=== PATIENT | male | born 1945 | race Caucasian/White ===

== ENCOUNTER 2017-09-14 11:48 | Emergency (ER) | payer OTHER, MEDICARE, BC ==
[~2017-09-14] VITALS: Ht 175.3 cm; Wt 76.2 kg
[~2017-09-14 11:48] MED LIST: 1-ME1LIQ PO; ATOR20TA42 PO; BACT800T5 PO; CEPH500C3 PO; HYDR-3533 PO; LISI-360 PO; TOPR100T15 PO
[2017-09-14 11:51] VITALS: BP 169/81; PULSE 73; RESP 16; TEMP 98; O2SAT 96
[2017-09-14] MEDS ORDERED: TOPR100T PO (12:06)
[2017-09-14] MEDS ORDERED: LISI10TA3 PO (12:06)
[2017-09-14] MEDS ORDERED: ATOR20TA15 PO (12:06)
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
[2017-09-14] MEDS ORDERED: ROBA500T PO (13:21)
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
== END 2017-09-14 14:09 | disposition home or self-care (01) ==
LOC: PHEFT 11:48
DX: M62.830 Muscle spasm of back (principal); M54.5 Low back pain
CPT/HCPCS: 72128; 72131; 99285

== ENCOUNTER 2018-07-12 10:31 | Inpatient (IN) ==
--- NOTE | 2018-07-12 11:03 | ED ---
HPI General Chief complaint: Head Injury Stated complaint: Fall/hit head/passt out x this am History of Present Illness HPI narrative: 72-year-old male presents emergency department for evaluation of mild headache neck pain right wrist pain after a fall. Patient states he misstepped going down [place] stairs and fell the last 5 stairs. He thinks he had a brief loss of consciousness after the fall. States he is having a little sternal chest pain when he takes a deep breath. No cough no congestion no abdominal pain no nausea vomiting. States just, achy all over as well. States symptoms are fairly mild, he took some Aleve with minimal relief prior to arrival, associated signs symptoms in context as above. Symptoms started about 2 hours prior to arrival. Related Data Home Medications Medication Instructions Recorded Confirmed atorvastatin 40 mg PO DAILY 07/12/18 metoprolol succinate 50 mg PO DAILY 07/12/18 Allergies Allergy/AdvReac Type Severity Reaction Status Date / Time No Known Allergies Unknown Uncoded 09/14/17 11:51 Review of Systems ROS: all other systems reviewed are negative [facility] Medical History Medical History HTN (hypertension) (Acute) High cholesterol (Acute) Surgical History Surgical History H/O heart artery stent (Acute) Hx of cardiac cath (Acute) Hx of endovascular stent graft for abdominal aortic aneurysm (Acute) Social History Social History Substance History: No History of Abuse Second Hand Smoke Exposure: Yes Smoking Status: Current every day smoker Tobacco Type: Cigarettes How Often Do You Have a Drink Containing Alcohol: 4 or more times a week Recent Travel in [facility] within the Last 8 Weeks: No Recent Out of Country Travel within the Last 8 Weeks: No Exam Narrative Exam Narrative: GENERAL: Well-developed well-nourished, no obvious distress, SKIN: Small abrasions noted to the scalp crown. No other significant abrasions or laceration seen on his person peer. HEAD: No russ signs no raccoons eyes. Normocephalic. EYES: Pupils equal and round. No scleral icterus. No injection or drainage. ENT: No nasal bleeding or discharge. Mucous membranes pink and moist. NECK: Trachea midline. No JVD. CARDIOVASCULAR: Regular rate and rhythm. No murmur appreciated. RESPIRATORY: No accessory muscle use. Clear to auscultation. Breath sounds equal bilaterally. GASTROINTESTINAL: Abdomen soft, non-tender, nondistended. Hepatic and splenic margins not palpable. MUSCULOSKELETAL: No obvious deformities. No clubbing. No cyanosis. No edema. No midline thoracic or lumbar tenderness. Trace midline cervical spine tenderness. Some mild swelling of the right wrist but no pulse motor and sensory intact distally in all 4 extremities, all range of motion is intact of the extremities NEUROLOGICAL: Awake and alert. No obvious cranial nerve deficits. Motor grossly within normal limits. Normal speech. PSYCHIATRIC: Appropriate mood and affect; insight and judgment normal. Course Initial Documented Vital Signs Temperature 98.3 F 07/12/18 11:15 Pulse Rate 85 07/12/18 11:15 Respiratory Rate 16 07/12/18 11:15 Blood Pressure 171/89 H 07/12/18 11:15 Pulse Oximetry 95 07/12/18 11:15 Last Documented Vital Signs Temperature 97.4 F L 07/13/18 04:00 Pulse Rate 92 H 07/13/18 07:31 Respiratory Rate 18 07/13/18 04:00 Blood Pressure 160/81 H 07/13/18 04:00 Pulse Oximetry 94 L 07/13/18 04:00 Medical Decision Making [facility] Narrative Medical decision making narrative: Patient is 72-year-old male since emergency department after trip and fall, looks well, scattered abrasions on his head. Lost consciousness when he completed his fall. EKG reassuring, basic labs ordered after the patient showed a transverse process C5 fracture on CT scan. Discussed with Dr. Jernigan who would like the patient to be admitted to trauma for his consultation, discussed with Dr. Don who is agreeable peer patient hemodynamically and neurologically intact. GCS 15, stable for transport to the main hospital per Medical Screen Exam Complete: Yes Emergency Medical Condition: Yes Differential Diagnosis Differential Diagnosis: Head injury, neck injury, internal injuries unlikely. Lab Data Result diagrams: 07/13/18 04:42 07/13/18 04:42 Lab Results 07/12/18 07/12/18 07/12/18 Range/Units 12:50 12:50 20:15 CBC w Diff Auto diff final WBC 11.1 H (4.0-11.0) th/mm3 RBC 4.41 L (4.50-5.90) mil/mm3 Hgb 15.3 (13.0-17.0) gm/dL Hct 44.0 (39.0-51.0) % MCV 99.8 (80.0-100.0) fL MCH 34.6 H (27.0-34.0) pg MCHC 34.6 (32.0-36.0) % RDW 13.1 (11.6-17.2) % Plt Count 231 (150-450) th/mm3 MPV 6.9 L (7.0-11.0) fL Neut % (Auto) 73.6 H (16.0-70.0) % Lymph % (Auto) 16.8 (9.0-44.0) % Dickey % (Auto) 6.7 (0.0-8.0) % Eos % (Auto) 0.9 (0.0-4.0) % Baso % (Auto) 2.0 (0.0-2.0) % Neut # (Auto) 8.2 H (1.8-7.7) th/mm3 Lymph # (Auto) 1.9 (1.0-4.8) th/mm3 Dickey # (Auto) 0.7 (0.0-0.9) th/mm3 Eos # (Auto) 0.1 (0.0-0.4) th/mm3 Baso # (Auto) 0.2 (0.0-0.2) th/mm3 WBC Differential . Differential Comment . Sodium 140 (136-145) meq/L Potassium 4.2 (3.5-5.1) meq/L Chloride 107 (98-107) meq/L Carbon Dioxide 22.8 (21.0-32.0) meq/L Anion Gap 10 (5-15) meq/L BUN 10 (7-18) mg/dL Creatinine 0.80 (0.60-1.30) mg/dL Estimated GFR Greater than 89 (>89) mL/min Random Glucose 74 (74-106) mg/dL Calcium 8.8 (8.5-10.1) mg/dL Total Bilirubin 0.6 (0.2-1.0) mg/dL AST 61 H (15-37) U/L ALT 48 (12-78) U/L Alkaline Phosphatase 65 (45-117) U/L Troponin I Less than 0.02 L (0.02-0.05) ng/mL Total Protein 8.2 (6.4-8.2) g/dL Albumin 4.1 (3.4-5.0) g/dL Nasal Screen MRSA (PCR) Not detected (Negative) 07/13/18 07/13/18 Range/Units 04:42 04:42 CBC w Diff WBC 7.7 (4.0-11.0) th/mm3 RBC 4.12 L (4.50-5.90) mil/mm3 Hgb 14.5 (13.0-17.0) gm/dL Hct 40.9 (39.0-51.0) % MCV 99.1 (80.0-100.0) fL MCH 35.1 H (27.0-34.0) pg MCHC 35.4 (32.0-36.0) % RDW 13.5 (11.6-17.2) % Plt Count 186 (150-450) th/mm3 MPV 7.2 (7.0-11.0) fL Neut % (Auto) 66.1 (16.0-70.0) % Lymph % (Auto) 20.7 (9.0-44.0) % Dickey % (Auto) 10.1 H (0.0-8.0) % Eos % (Auto) 2.5 (0.0-4.0) % Baso % (Auto) 0.6 (0.0-2.0) % Neut # (Auto) 5.1 (1.8-7.7) th/mm3 Lymph # (Auto) 1.6 (1.0-4.8) th/mm3 Dickey # (Auto) 0.8 (0.0-0.9) th/mm3 Eos # (Auto) 0.2 (0.0-0.4) th/mm3 Baso # (Auto) 0.0 (0.0-0.2) th/mm3 WBC Differential . Differential Comment Auto diff final Sodium 138 (136-145) meq/L Potassium 3.6 (3.5-5.1) meq/L Chloride 105 (98-107) meq/L Carbon Dioxide 23.1 (21.0-32.0) meq/L Anion Gap 10 (5-15) meq/L BUN 11 (7-18) mg/dL Creatinine 0.83 (0.60-1.30) mg/dL Estimated GFR Greater than 89 (>89) mL/min Random Glucose 104 (74-106) mg/dL Calcium 8.7 (8.5-10.1) mg/dL Total Bilirubin (0.2-1.0) mg/dL AST (15-37) U/L ALT (12-78) U/L Alkaline Phosphatase (45-117) U/L Troponin I (0.02-0.05) ng/mL Total Protein (6.4-8.2) g/dL Albumin (3.4-5.0) g/dL Nasal Screen MRSA (PCR) (Negative) Imaging Data Radiologist's impression: Cervical Spine CT 07/12/18 11:00 CONCLUSION: 1. There is a right C5 spinous process fracture with 4 mm of displacement. No other fracture is identified. 2. Degenerative changes throughout the cervical spine, as above. Changes are most significant at C5-C6 where there is severe degenerative disc disease, posterior disc osteophyte complex, and uncovertebral osteophytes mildly narrow the spinal canal and causing moderate right neural foraminal stenosis. Chest X-Ray 07/12/18 11:00 CONCLUSION: Negative examination. Head CT 07/12/18 11:00 CONCLUSION: Negative noncontrast head CT. No acute finding is identified. . Wrist X-Ray 07/12/18 11:00 CONCLUSION: No evidence of recent bony injury. Abdomen/Pelvis CT 07/12/18 12:48 CONCLUSION: 1. Hepatic steatosis. 2. Severe diverticulosis. 3. Abdominal aortic aneurysm. 4. No acute findings. Chest CT 07/12/18 12:48 CONCLUSION: 1. Severe emphysema. 2. Hepatic steatosis. 3. Atherosclerosis. Discharge Plan Discharge Disposition Patient Disposition: 02 Transfer To [facility] Discharge Details Diagnosis: Fracture of cervical vertebra, C5 Physicians Team ED Provider: Simon Vasquez Primary Care Provider: Stone Garcia Attending Provider: Obie Don Other Providers: Harman Jernigan ; Jack Burdick ; Bhavesh Maciel ; [employer] [facility] ; Gabo Jean-Baptiste ; Marilu Dubon ; Obie Don ; Leann Nava ; Cassie Marrero ; Gregg Rosales Discharge Interventions Interventions: ED Discharge Assessment Last Done: 07/12/18 18:28 Vital Signs Last Done: 07/12/18 11:16 Status ED Status: Left Department Discharge Information Discharge Date/Time: 07/12/18 18:28
--- NOTE | 2018-07-12 11:26 | XR ---
EXAM DATE: 07/12/2018 11:24 AM EDT AGE/SEX: 72 years / Male INDICATIONS: Right posterior wrist pain post fall down stairs today. CLINICAL DATA: This is the patient's initial encounter. Patient reports that signs and symptoms have been present for 1 day and indicates a pain score of 7/10. MEDICAL/SURGICAL HISTORY: Hypertension. Hypercholesterolemia. Abdominal aortic aneurysm repair . Cardiac cath w/ stent placement. COMPARISON: No prior exams available for comparison. FINDINGS: Bony structures are intact and in normal alignment. Joints are intact without dislocation or signifi cant arthropathy. Osseous density is normal. Soft tissues are unremarkable. No radiopaque foreign bodies seen. CONCLUSION: No evidence of recent bony injury. Electronically signed by: Ivan Stephens MD 07/12/2018 11:25 AM EDT
--- NOTE | 2018-07-12 12:03 | XR ---
EXAM DATE: 07/12/2018 11:22 AM EDT AGE/SEX: 72 years / Male INDICATIONS: . Sternal pain post fall down stairs today. CLINICAL DATA: This is the patient's initial encounter. Patient reports that signs and symptoms have been present for 1 day and indicates a pain score of 9/10. MEDICAL/SURGICAL HISTORY: Hypertension. Hypercholesterolemia. Abdominal aortic aneurysm repair . Cardiac cath with stent placement. COMPARISON: [facility] [place], CHEST PA & LAT, 12/07/2012. . FINDINGS: PA and lateral views of the chest demonstrate the lungs to be symmetrically aerated without evidence of mass, infiltrate or effusion. The cardiomediastinal contours are unremarkable. Osseous structures are intact. CONCLUSION: Negative examination. Electronically signed by: Ivan Stephens MD 07/12/2018 12:02 PM EDT
--- NOTE | 2018-07-12 12:13 | CT ---
EXAM DATE: 07/12/2018 12:06 PM EDT AGE/SEX: 72 years / Male INDICATIONS: Fell and hit head. CLINICAL DATA: This is the patient's initial encounter. Patient reports that signs and symptoms have been present for 1 day and indicates a pain score of 5/10. MEDICAL/SURGICAL HISTORY: Cardiovascular disease. Hypertension. Aneurysm, abdominal. Abdominal ao rtic aneurysm repair. Cardiac stent placement. RADIATION DOSE: 53.45 CTDI (mGy) COMPARISON: No prior exams available for comparison. TECHNIQUE: CT of the head without contrast. Using automated exposure control and adjustment of the mA and/or kV according to patient size, radiation dose was kept as low as reasonably achievable to ob tain optimal diagnostic quality images. DICOM format image data is available electronically for revi ew and comparison. FINDINGS: Cerebrum: There is mild generalized atrophy and ventricles are normal given the degree of atrophy. M ild periventricular white matter change is present. No midline shift, mass lesion, hemorrhage or acu te infarction. No extraaxial fluid collections are seen. Posterior Fossa: The cerebellum and brainstem demonstrate no acute abnormality. The 4th ventricle is midline. The cerebellopontine angle is within normal limits. Extracranial: The visualized sinuses are clear. Skull: The calvaria is intact. No skull fracture. CONCLUSION: Negative noncontrast head CT. No acute finding is identified. . Electronically signed by: Ervin Vasques MD 07/12/2018 12:12 PM EDT
--- NOTE | 2018-07-12 12:26 | CT ---
EXAM DATE: 07/12/2018 12:13 PM EDT AGE/SEX: 72 years / Male INDICATIONS: Fell and hit head. Neck pain. CLINICAL DATA: This is the patient's initial encounter. Patient reports that signs and symptoms have been present for 1 day and indicates a pain score of 5/10. MEDICAL/SURGICAL HISTORY: Cardiovascular disease. Hypertension. Aneurysm, abdominal. Abdomina l aortic aneurysm repair. Cardiac stent placement. RADIATION DOSE: 26.64 CTDI (mGy) COMPARISON: No prior exams available for comparison. TECHNIQUE: Contiguous axial images were obtained using helical multirow detector technique. The vol umetric data was post-processed with multiplanar reconstruction in oblique axial, sagittal, and coron al planes. Using automated exposure control and adjustment of the mA and/or kV according to patient s ize, radiation dose was kept as low as reasonably achievable to obtain optimal diagnostic quality tiffany ges. DICOM format image data is available electronically for review and comparison. FINDINGS: Vertebrae: There is a fracture of the right C5 spinous process with 4 mm of displacement. Alignment: No anterolisthesis or retrolisthesis. The craniocervical junction and C1-C2 level demonstrate no significant abnormality. C2-C3: There is a very small central disc protrusion. No spinal canal stenosis or neural foraminal s tenosis is present. C3-C4: Minimal posterior disc osteophyte complex. No spinal canal stenosis or neural foraminal steno sis is present. C4-C5: Small posterior disc osteophyte complex. No significant spinal canal stenosis or neural susana inal stenosis is present. C5-C6: Decreased disc height with endplate osteophytes anteriorly and moderate sized posterior disc osteophyte complex and right uncovertebral osteophyte. These changes mildly narrow the spinal canal a nd cause mild left and moderate right neural foraminal stenosis. C6-C7: Decreased disc height. No definite canal or neural foraminal stenosis is seen. C7-T1: No disc herniation, canal stenosis, or neural foraminal stenosis is identified. Other: The visualized surrounding structures demonstrate no acute abnormality. There are emphysematou s changes at the lung apices. CONCLUSION: 1. There is a right C5 spinous process fracture with 4 mm of displacement. No other fracture is iden tified. 2. Degenerative changes throughout the cervical spine, as above. Changes are most significant at C5- C6 where there is severe degenerative disc disease, posterior disc osteophyte complex, and uncoverteb ral osteophytes mildly narrow the spinal canal and causing moderate right neural foraminal stenosis. Electronically signed by: Ervin Vasques MD 07/12/2018 12:25 PM EDT
[2018-07-12 13:00] LABS: Baso # (Auto) 0.2 th/mm3 (0.0-0.2); Eos # (Auto) 0.1 th/mm3 (0.0-0.4); Eos % (Auto) 0.9 % (0.0-4.0); Hemoglobin 15.3 gm/dL (13.0-17.0); Lymph # (Auto) 1.9 th/mm3 (1.0-4.8); Lymph % (Auto) 16.8 % (9.0-44.0); Mean Corpuscular HGB Conc 34.6 % (32.0-36.0); Mean Corpuscular Hemoglobin 34.6 pg (27.0-34.0); Mean Corpuscular Volume 99.8 fL (80.0-100.0); Mean Platelet Volume 6.9 fL (7.0-11.0); Mono # (Auto) 0.7 th/mm3 (0.0-0.9); Mono % (Auto) 6.7 % (0.0-8.0); Neut # (Auto) 8.2 th/mm3 (1.8-7.7); Neut % (Auto) 73.6 % (16.0-70.0); Platelet Count 231 th/mm3 (150-450); Red Blood Count 4.41 mil/mm3 (4.50-5.90); Red Cell Distribution Width 13.1 % (11.6-17.2); White Blood Count 11.1 th/mm3 (4.0-11.0)
[2018-07-12 13:11] LABS: Chloride 107 meq/L (98-107); Potassium 4.2 meq/L (3.5-5.1); Sodium 140 meq/L (136-145)
[2018-07-12 13:15] LABS: Calcium 8.8 mg/dL (8.5-10.1)
[2018-07-12 13:16] LABS: Albumin 4.1 g/dL (3.4-5.0); Anion Gap 10 meq/L (5-15); Blood Urea Nitrogen 10 mg/dL (7-18); Carbon Dioxide 22.8 meq/L (21.0-32.0); Glucose,Random 74 mg/dL (74-106)
[2018-07-12 13:19] LABS: Alanine Aminotransferase 48 U/L (12-78); Aspartate Aminotransferase 61 U/L (15-37); Glomerular Filtration Rate Greater Than 89 mL/min (>89)
[2018-07-12 13:21] LABS: Total Protein 8.2 g/dL (6.4-8.2)
[2018-07-12 13:22] LABS: Alkaline Phosphatase 65 U/L (45-117)
--- NOTE | 2018-07-12 14:24 | CT ---
EXAM DATE: 07/12/2018 1:45 PM EDT AGE/SEX: 72 years / Male INDICATIONS: Fall. CLINICAL DATA: This is the patient's initial encounter. Patient reports that signs and symptoms have been present for 1 day and indicates a pain score of 5/10. MEDICAL/SURGICAL HISTORY: . Cardiovascular disease. Hypertension. Aneurysm, abdominal. . Abdominal aortic aneurysm repair. Cardiac stent placement. RADIATION DOSE: 14.90 CTDI (mGy) ; Combined studies COMPARISON: [facility], CHEST 2V PA&LAT, 07/12/2018. . TECHNIQUE: Multiple contiguous axial images were obtained through the chest during bolus infusion of 95 ml Omnipaque 350 (iohexol) nonionic water-soluble contrast as a single exam dose. Images were obtained in suspended respiration using multiple row detector helical technique. Using automated exp osure control and adjustment of the mA and/or kV according to patient size, radiation dose was kept a s low as reasonably achievable to obtain optimal diagnostic quality images. DICOM format image data is available electronically for review and comparison. FINDINGS: There is atherosclerotic calcification of the aorta and coronary arteries. No pleural or pericardial effusions. Endovascular stent graft repair of abdominal aortic aneurysm. At the level of the kidneys on image 69 the aneurysm sac measures 4.2 x 3.8 cm in AP transverse dimension. Kidneys, adrenals are unremarkable. No pathologically enlarged lymph nodes. Review of lung windows demonstrate severe emphy sema. Review of bone windows demonstrate degenerative changes of the spine. There is mild hepatic alfredo atosis. There is pleural thickening along the minor fissure and oblique fissure on the right. CONCLUSION: 1. Severe emphysema. 2. Hepatic steatosis. 3. Atherosclerosis. Electronically signed by: Ivan Stephens MD 07/12/2018 2:23 PM EDT
--- NOTE | 2018-07-12 14:33 | CT ---
EXAM DATE: 07/12/2018 1:46 PM EDT AGE/SEX: 72 years / Male INDICATIONS: Fall. CLINICAL DATA: This is the patient's initial encounter. Patient reports that signs and symptoms have been present for 1 day and indicates a pain score of 5/10. MEDICAL/SURGICAL HISTORY: . Cardiovascular disease. Hypertension. Aneurysm, abdominal. . Abdom inal aortic aneurysm repair. Cardiac stent placement. ORAL CONTRAST: No oral contrast ingested. RADIATION DOSE: 14.90 CTDI (mGy) ; Combined studies COMPARISON: No prior exams available for comparison. TECHNIQUE: Multiple contiguous axial images were obtained through the abdomen and pelvis following b olus infusion of 95 ml Omnipaque 350 (iohexol) nonionic water-soluble contrast as a single exam dos e. No oral contrast ingested. Using automated exposure control and adjustment of the mA and/or kV ac cording to patient size, radiation dose was kept as low as reasonably achievable to obtain optimal di agnostic quality images. DICOM format image data is available electronically for review and comparis on hepatic steatosis.. FINDINGS: No pleural or pericardial effusions are seen. The patient is status post endovascular stent graft rep air of abdominal aortic aneurysm. Maximal AP and transverse dimension of the aneurysm is 3.9 x 3.8 cm on axial image 25. Urinary bladder, prostate unremarkable. Sigmoid diverticulosis and descending col onic diverticulosis, severe in degree identified, without diverticulitis. Appendix normal. Diffuse at herosclerotic calcification of the aorta and iliac vessels. Kidneys, bladder, spleen, pancreas, stoma ch, small bowel unremarkable. Fatty liver. Gallbladder unremarkable. Review of bone windows demonstra te degenerative changes of the spine. CONCLUSION: 1. Hepatic steatosis. 2. Severe diverticulosis. 3. Abdominal aortic aneurysm. 4. No acute findings. Electronically signed by: Ivan Stephens MD 07/12/2018 2:32 PM EDT
--- NOTE | 2018-07-12 16:24 | ECG ---
Date Performed: 07/12/2018 Time Performed: 11:28:37 PTAGE: 72 years EKG: Sinus rhythm Since the previous tracing, no significant change noted NORMAL ECG PREVIOUS TRACING : 12/07/2012 12.07 DOCTOR: Nayan Gomes Interpretating Date/Time 07/12/2018 16:19:57
[2018-07-12] MEDS ORDERED: Morphine Sulfate Inj 2 MG/ML Vial IV.PUSH PRN (19:17)
[2018-07-12] MEDS ORDERED: Pantoprazole Inj 40 MG Vial IV.PUSH SCH (20:00)
--- NOTE | 2018-07-12 21:22 | MH ---
cc: Obie Don MD DATE OF ADMISSION: 07/12/2018 CHIEF COMPLAINT: Trauma, nontrauma, alert, status post fall. HISTORY OF PRESENT ILLNESS: The patient is a 72-year-old male who presents to the emergency department status post fall down steps. The patient was noted to be feeling a little dizzy and fell down approximately 5 steps. He had positive loss of consciousness. He has some amnesia to the events. He is complaining of some headache. He states he misstepped. He denies any back pain or leg pain, but does complain of some right upper extremity pain. He is hemodynamically stable. He had further evaluation including CT scans showing C-spine fracture, C5. He was admitted for a neurosurgical evaluation. PAST MEDICAL HISTORY: Hypertension, hypercholesterolemia. PAST SURGICAL HISTORY: Cardiac stents, aortic stent. SOCIAL HISTORY: Positive smoking. Denies ETOH or IVDA. ALLERGIES: NO KNOWN DRUG ALLERGIES. MEDICATIONS: See EMR. FAMILY HISTORY: Denies diabetes or hypertension. REVIEW OF SYSTEMS: GENERAL: Complains of headache. HEENT: Denies ear pain. Complains of neck pain. LUNGS: Denies cough or wheeze. HEART: Denies palpitations or chest pain. ABDOMEN: Denies nausea or vomiting. GENITOURINARY: Denies dysuria or hematuria. ENDOCRINE: Denies polyuria or polydipsia. INTEGUMENTARY: Complains of right elbow abrasion. PSYCHIATRIC: Denies change in mood or sensorium. PHYSICAL EXAMINATION: GENERAL: The patient in no acute distress. VITAL SIGNS: On admission, temperature 98.3, pulse 85, respiration 16, blood pressure 171/89, saturation 95%. HEENT: Pupils equal, round and reactive. A small abrasion on superior scalp. NECK: C-collar in place. Clavicles nontender. LUNGS: Bilateral expansion, clear. HEART: S1, S2 regular. ABDOMEN: Soft, nontender, nondistended. EXTREMITIES: Right extremity abrasion, lateral elbow. NEUROLOGIC: 5/5 motor in all extremities. GCS of 15. PSYCHIATRIC: Appropriate mood. Appropriate insight. BACK: No step-offs. LABORATORY AND DIAGNOSTIC DATA: WBC 11.1, hemoglobin 15.3, hematocrit 44, platelets 231. Sodium 140, potassium 4.2, chloride 107, CO2 is 22.8, BUN 10, creatinine 0.8, glucose 74. CT and X-rays reviewed by myself showing: CT head: No evidence of acute traumatic pathology. CT C-spine: Degenerative changes, C5 spinous process fracture, [address] chest: Emphysema, hepatic steatosis, atherosclerosis. CT abdomen and pelvis: No acute traumatic pathology identified, aortic aneurysm, diverticulosis. Chest x-ray: No pneumothorax. ASSESSMENT: The patient is a 72-year-old male status post trip and fall down 5 steps, positive loss of consciousness, positive C5 spinous process fracture, otherwise neurologically intact. Several medical issues. PLAN: After full clinical, radiological and laboratory workup, the patient with the above-named issues. At this point, we will await neurosurgical evaluation for a C5 fracture. The patient will be maintained in a C-collar. We will do frequent neuro checks. We will place the patient on telemetry as the patient has a cardiac history. We will continue review for close monitoring. We will give adequate pain control, IV fluids. The patient can have a regular diet unless otherwise stated by neurosurgery. Discussed with the patient in detail. Will continue to follow closely for evidence of ongoing injury. MD MARYA Shetty/brit , 08:52 PM , 09:03 PM
[2018-07-12] MEDS: Docusate Sodium 100 MG Capsule PO SCH (21:46)
[2018-07-12] MEDS: Sod Chloride 0.9% Inj 1,000 ML IV.CONT SCH (21:54)
[2018-07-13] MEDS ORDERED: Chlorhexidine Gluconate 2% 1 Pack (2 Cloths) TOPICAL PRN (04:00)
[2018-07-13] MEDS ORDERED: Chlorhexidine Gluconate 2% 1 Pack (2 Cloths) TOPICAL SCH (04:00)
[2018-07-13] MEDS: Sod Chloride 0.9% Inj 1,000 ML IV.CONT SCH (06:03)
[2018-07-13 06:09] LABS: Baso % (Auto) 0.6 % (0.0-2.0); Eos # (Auto) 0.2 th/mm3 (0.0-0.4); Eos % (Auto) 2.5 % (0.0-4.0); Hematocrit 40.9 % (39.0-51.0); Hemoglobin 14.5 gm/dL (13.0-17.0); Lymph # (Auto) 1.6 th/mm3 (1.0-4.8); Lymph % (Auto) 20.7 % (9.0-44.0); Mean Corpuscular HGB Conc 35.4 % (32.0-36.0); Mean Corpuscular Hemoglobin 35.1 pg (27.0-34.0); Mean Corpuscular Volume 99.1 fL (80.0-100.0); Mean Platelet Volume 7.2 fL (7.0-11.0); Mono # (Auto) 0.8 th/mm3 (0.0-0.9); Mono % (Auto) 10.1 % (0.0-8.0); Neut # (Auto) 5.1 th/mm3 (1.8-7.7); Neut % (Auto) 66.1 % (16.0-70.0); Platelet Count 186 th/mm3 (150-450); Red Blood Count 4.12 mil/mm3 (4.50-5.90); Red Cell Distribution Width 13.5 % (11.6-17.2); White Blood Count 7.7 th/mm3 (4.0-11.0)
[2018-07-13 06:33] LABS: Anion Gap 10 meq/L (5-15); Blood Urea Nitrogen 11 mg/dL (7-18); Calcium 8.7 mg/dL (8.5-10.1); Carbon Dioxide 23.1 meq/L (21.0-32.0); Chloride 105 meq/L (98-107); Glomerular Filtration Rate Greater Than 89 mL/min (>89); Glucose,Random 104 mg/dL (74-106); Potassium 3.6 meq/L (3.5-5.1); Sodium 138 meq/L (136-145)
[2018-07-13] MEDS ORDERED: Methocarbamol 500 MG Tablet PO SCH (08:00)
[2018-07-13] MEDS ORDERED: Lidocaine 5% Patch T-DERMAL SCH (09:00)
[2018-07-13] MEDS ORDERED: Polyethylene Glycol 3350 17 GM Packet PO SCH (09:00)
[2018-07-13] MEDS: Docusate Sodium 100 MG Capsule PO SCH (09:23)
--- NOTE | 2018-07-13 10:52 | P.CONNS ---
History of Present Illness Service: neurosurgery Consult date: 07/13/18 Reason for Consult: cervical fracture Primary Care Provider: Stone Garcia Family Provider: Stone Garcia History of Present Illness: This is a 72-year-old male who presents to [facility] emergency department after a fall. Apparently he he misstepped going down hardwood stairs and fell the last 5 stairs. He thinks he had a brief loss of consciousness after the fall. No seizure activity reported. No tongue bitting. No incontinence of stool or urine. He reports headaches, neck pain, right wrist pain and gebneralized pain after a fall. Patient states States he is having a little sternal chest pain when he takes a deep breath. No cough no congestion no abdominal pain no nausea vomiting. States just, achy all over as well. States symptoms are fairly mild, he took some Aleve with minimal relief prior to arrival, associated signs symptoms in context as above. Symptoms started about 2 hours prior to arrival. Review of Systems All other systems reviewed negative except as stated in HPI Constitutional: Denies anorexia, Denies body ache(s), Denies chills, Denies daytime sleepiness, Denies excessive sweating, Denies fatigue, Denies fever(s), Denies headache(s), Denies increased appetite, Denies lack of energy, Denies malaise, Denies night sweats, Denies weakness, Denies weight gain, Denies weight loss, Denies other Eyes: Denies blind spots, Denies blurry vision, Denies bulging eyes, Denies change in vision, Denies double vision, Denies discharge, Denies dry eyes, Denies floaters, Denies irritation, Denies itchy eyes, Denies loss of vision, Denies pain, Denies requires corrective lenses, Denies sensitivity to light, Denies other Ears, Nose, Mouth, and Throat: Denies abnormal hearing, Denies bleeding gums, Denies bad breath, Denies change in voice, Denies dental pain, Denies difficulty swallowing, Denies dizziness, Denies dry mouth, Denies ear discharge , Denies ear pain, Denies facial pain, Denies headache(s), Denies hearing loss, Denies hoarseness, Denies lip swelling, Denies nosebleed, Denies mouth lesions, Denies mouth pain, Denies nasal congestion, Denies nasal discharge, Denies nasal obstruction, Denies nasal trauma, Denies neck lump, Denies neck pain, Denies nose pain, Denies pain with swallowing, Denies poor balance, Denies post nasal drip, Denies ringing in the ears, Denies sinus pain, Denies sinus pressure , Denies sore throat, Denies throat swelling, Denies tongue swelling, Denies other Cardiovascular: Denies chest pain, Denies chest pain at rest, Denies chest pain with activity, Denies excessive sweating, Denies fainting, Denies fast heart rate, Denies foot swelling, Denies generalized swelling, Denies irregular heart rhythm, Denies leg pain with activity, Denies leg sores, Denies leg swelling, Denies lightheadedness, Denies radiating jaw, neck or arm pain, Denies rapid, pounding, or irregular heartbeat, Denies shortness of breath, Denies shortness of breath with activity, Denies shortness of breath when lying down, Denies shortness of breath causing sudden awakening, Denies slow heart rate, Denies other Respiratory: Denies change in phlegm color, Denies chest congestion, Denies cough, Denies coughing up blood, Denies excessive phlegm production, Denies pain on inspiration, Denies pain with cough, Denies shortness of breath, Denies shortness of breath with activity, Denies snoring, Denies stridor, Denies wheezing, Denies other Gastrointestinal: Denies abdominal pain, Denies belching, Denies black, tarry stools, Denies bloating, Denies bright, red blood in stools, Denies change in bowel habits, Denies constant urge to pass stool, Denies change in stools, Denies coffee ground vomit, Denies constipation, Denies cramping, Denies difficulty swallowing, Denies excessive passing of gas, Denies feeling full early, Denies heartburn, Denies incontinent of stools, Denies loose stools, Denies nausea, Denies pain with swallowing, Denies vomiting, Denies vomiting blood, Denies other Genitourinary: Denies blood in semen, Denies blood in urine, Denies decreased urination, Denies difficulty urinating, Denies difficulty with ejaculations, Denies erectile dysfunction, Denies genital lesions, Denies genital pain, Denies painful urination, Denies side pain, Denies frequent nighttime urination , Denies painful ejaculations, Denies penile discharge, Denies scrotal swelling , Denies testicle lump, Denies testicle pain, Denies urinary frequency, Denies urinary hesitancy, Denies urinary incontinence, Denies urinary urgency, Denies other Musculoskeletal: Reports joint pain, Reports neck pain, Denies abnormal walking , Denies back pain, Denies body aches, Denies decreased muscle mass, Denies deformity, Denies joint swelling, Denies limited joint movement, Denies loss of height, Denies muscle cramps, Denies muscle weakness, Denies numbness, Denies radiating pain into limb, Denies stiffness, Denies tingling, Denies other Skin/Breast: Denies acne, Denies bleeding lesions, Denies boil, Denies breast swelling, Denies breast skin changes, Denies breast pain, Denies breast lump, Denies change in breast shape, Denies change in hair, Denies change in skin color, Denies changing lesions, Denies dry skin, Denies excessive hair growth, Denies hair loss, Denies itching, Denies lesions, Denies nail changes, Denies new lesions, Denies nipple discharge, Denies non-healing lesions, Denies redness , Denies sensitivity to light, Denies rash, Denies skin pain, Denies skin ulcer , Denies sores, Denies stretch ibarra, Denies unusual bruising, Denies wounds, Denies yellowing of the skin, Denies other Neurologic: Denies abnormal hearing, Denies abnormal movements, Denies abnormal speech, Denies abnormal walking, Denies behavioral changes, Denies burning sensations, Denies confusion, Denies dizziness, Denies fainting, Denies frequent falls, Denies headache(s), Denies lack of coordination, Denies localized weakness, Denies loss of vision, Denies memory loss, Denies numbness, Denies other visual disturbances, Denies radiating pain, Denies restless legs, Denies convulsions, Denies seizure-like activity, Denies sensory deficit, Denies tingling, Denies tingling/numbness/burning sensations, Denies tremor(s), Denies unsteadiness, Denies weakness, Denies other Psychiatric: Denies abnormal sleep pattern, Denies anxiety, Denies behavioral changes, Denies change in appetite, Denies change in sex drive, Denies confusion , Denies depression, Denies difficulty concentrating, Denies hearing things others do not hear, Denies hopelessness, Denies irritability, Denies lack of enjoyment, Denies memory loss, Denies mood swings, Denies panic attacks, Denies paranoia, Denies seeing things others do not see, Denies sensing things others do not sense, Denies tactile hallucinations, Denies thoughts of hurting/killing others, Denies thoughts of hurting/killing yourself, Denies other Endocrine: Denies cold intolerance, Denies excessive sweating, Denies flushing, Denies heat intolerance, Denies increased hunger, Denies increased thirst, Denies increased urination, Denies rapid, pounding, or irregular heartbeat, Denies other Hematologic/Lymphatic: Denies easy bleeding, Denies easy bruising, Denies enlarged lymph nodes, Denies other Allergic/Immunologic: Denies GI upset with certain foods, Denies hives, Denies itchy eyes, Denies lip swelling, Denies seasonal runny nose, Denies throat swelling, Denies tongue swelling, Denies wheezing, Denies other PMFSH - History History Provided By: Patient - Medical History Medical History: Medical History (Last Reviewed 07/13/18 @ 10:46 by Harman Jernigan MD) HTN (hypertension) High cholesterol - Surgical History Surgical History: Surgical History (Last Reviewed 07/13/18 @ 10:46 by Harman Jernigan MD) H/O heart artery stent Hx of cardiac cath Hx of endovascular stent graft for abdominal aortic aneurysm - Tobacco History Second Hand Smoke Exposure: Yes Tobacco Use In Past 30 Days: Yes Smoking Status: Current every day smoker Tobacco Type: Cigarettes - Alcohol History How Often Do You Have a Drink Containing Alcohol: 4 or more times a week - Substance Use History Substance History: No History of Abuse - Travel History Recent Travel Out of the Country Within the Last 8 Weeks: No - Immunization History Tetanus Immunization: Unsure Hx Influenza Vaccine This Season: Yes Medications and Allergies Active Medications: Active Medications Hydrocodone Bitart/Acetaminophen ([place] 5/325) 1 tab PO Q4H PRN PRN Reason: Pain 1-5 Last Admin: 07/13/18 09:22 Dose: 1 tab Albuterol (Duoneb Neb (Prn)) 1 ampul NEB Q2HR NEB PRN PRN Reason: SHORTNESS OF BREATH/WHEEZING Albuterol (Duoneb Neb (Radha)) 1 ampul NEB Q6HR NEB [facility] Last Admin: 07/13/18 09:15 Dose: 1 ampul Atorvastatin Calcium (Lipitor) 40 mg PO HS [facility] Docusate Sodium (Colace) 100 mg PO BID [facility] Last Admin: 07/13/18 09:23 Dose: Not Given Enalaprilat (Vasotec Inj) 1.25 mg IV.PUSH Q8H PRN PRN Reason: Blood pressure 180/95 Sodium Chloride (Ns Inj) 1,000 mls @ 100 mls/hr IV.CONT .Q10H [facility] Last Infusion: 07/13/18 09:24 Dose: Infused Acetaminophen (Ofirmev Inj) 1,000 mg in 100 mls @ 400 mls/hr IV.SIG Q6H [facility] Stop: 07/14/18 03:14 Last Admin: 07/13/18 09:21 Dose: 400 mls/hr Lidocaine HCl (Lidoderm 5% Patch.12 Hr) 1 patch T-DERMAL DAILY [facility] Last Admin: 07/13/18 09:25 Dose: 1 patch Methocarbamol (Robaxin) 500 mg PO Q8H [facility] Last Admin: 07/13/18 09:25 Dose: 500 mg Metoprolol Succinate (Toprol Xl) 50 mg PO DAILY [facility] Last Admin: 07/13/18 09:23 Dose: 50 mg Morphine Sulfate (Morphine Inj) 2 mg IV.PUSH Q3H PRN PRN Reason: Break through pain Last Admin: 07/12/18 21:46 Dose: 2 mg Ondansetron HCl (Zofran Inj) 4 mg IV.PUSH Q6H PRN PRN Reason: NAUSEA OR VOMITING Pantoprazole Sodium (Protonix Inj) 40 mg IV.PUSH Q24H [facility] Last Admin: 07/12/18 21:46 Dose: 40 mg Patch Removal (Remove Old Patch) 1 each T-DERMAL [facility] Polyethylene Glycol (Miralax) 17 gm PO DAILY [facility] Last Admin: 07/13/18 09:25 Dose: Not Given Sodium Chloride (Ns Flush) 2 ml IV.FLUSH UNSCH PRN PRN Reason: FLUSH AFTER USING IV ACCESS Sodium Chloride (Ns Flush) 2 ml IV.FLUSH UNSCH PRN PRN Reason: FLUSH AFTER USING IV ACCESS Allergies Allergy/AdvReac Type Severity Reaction Status Date / Time No Known Allergies Unknown Uncoded 09/14/17 11:51 Home Medications Medication Instructions Recorded Confirmed Type atorvastatin 40 mg PO DAILY 07/12/18 History metoprolol succinate 50 mg PO DAILY 07/12/18 History Exam Vital signs: Vital Signs 07/12/18 11:15 07/12/18 11:16 07/12/18 12:32 Temperature 98.3 F Pulse Rate 85 79 Respiratory Rate 16 16 Blood Pressure 171/89 H 177/88 H Pulse Oximetry 95 95 95 07/12/18 14:12 07/12/18 14:17 07/12/18 18:39 Temperature 97.9 F Pulse Rate 86 85 Respiratory Rate 16 19 Blood Pressure 178/90 H 187/99 H Pulse Oximetry 95 94 L 07/12/18 20:00 07/12/18 20:24 07/12/18 22:32 Temperature 98 F Pulse Rate 77 Respiratory Rate 18 18 Blood Pressure 197/93 H Pulse Oximetry 95 97 07/13/18 00:47 07/13/18 01:58 07/13/18 04:00 Temperature 98 F 97.4 F L Pulse Rate 94 H 77 Respiratory Rate 18 18 18 Blood Pressure 125/72 160/81 H Pulse Oximetry 95 94 L 07/13/18 04:05 07/13/18 07:31 07/13/18 08:00 Temperature 97.4 F L Pulse Rate 66 92 H 77 Respiratory Rate 17 Blood Pressure 152/77 H Pulse Oximetry 94 L 07/13/18 09:16 Temperature Pulse Rate 74 Respiratory Rate 18 Blood Pressure Pulse Oximetry 93 L Intake & Output 07/12/18 07/13/18 07/13/18 18:59 06:59 18:59 Intake Total 300 / 300 900 / 900 Balance 300 / 300 900 / 900 Weight 77 kg 77 kg Intake: IV 900 / 900 NS Inj 1,000 ML @ 100 mls/hr IV 900 / 900 .CONT .Q10H RADHA Rx#:[id number] Oral 300 / 300 Other: # Voids 0 Date of Last Bowel Movement 07/11/18 Narrative: Exam Narrative: GENERAL: Well-developed well-nourished, no obvious distress, SKIN: Small abrasions noted to the scalp crown. No other significant abrasions or laceration seen on his person peer. HEAD: No russ signs no raccoons eyes. Normocephalic. EYES: Pupils equal and round. No scleral icterus. No injection or drainage. ENT: No nasal bleeding or discharge. Mucous membranes pink and moist. NECK: Trachea midline. No JVD. CARDIOVASCULAR: Regular rate and rhythm. No murmur appreciated. RESPIRATORY: No accessory muscle use. Clear to auscultation. Breath sounds equal bilaterally. GASTROINTESTINAL: Abdomen soft, non-tender, nondistended. Hepatic and splenic margins not palpable. MUSCULOSKELETAL: No obvious deformities. No clubbing. No cyanosis. No edema. No midline thoracic or lumbar tenderness. Trace midline cervical spine tenderness. Some mild swelling of the right wrist but no pulse motor and sensory intact distally in all 4 extremities, all range of motion is intact of the extremities NEUROLOGICAL: Awake and alert. No obvious cranial nerve deficits. Motor grossly within normal limits. Normal speech. PSYCHIATRIC: Appropriate mood and affect; insight and judgment normal. Results - Laboratory Findings CBC and BMP: 07/13/18 04:42 07/13/18 04:42 Abnormal lab findings: Abnormal Labs 07/12/18 07/12/18 07/13/18 12:50 12:50 04:42 WBC 11.1 H RBC 4.41 L 4.12 L MCH 34.6 H 35.1 H MPV 6.9 L Neut % (Auto) 73.6 H [place] % (Auto) 10.1 H Neut # (Auto) 8.2 H AST 61 H Troponin I Less than 0.02 L Assessment and Plan - Plan Radiologist's impression: Cervical Spine CT 07/12/18 11:00 CONCLUSION: 1. There is a right C5 spinous process fracture with 4 mm of displacement. No other fracture is identified. 2. Degenerative changes throughout the cervical spine, as above. Changes are most significant at C5-C6 where there is severe degenerative disc disease, posterior disc osteophyte complex, and uncovertebral osteophytes mildly narrow the spinal canal and causing moderate right neural foraminal stenosis. Chest X-Ray 07/12/18 11:00 CONCLUSION: Negative examination. Head CT 07/12/18 11:00 CONCLUSION: Negative noncontrast head CT. No acute finding is identified. Wrist X-Ray 07/12/18 11:00 CONCLUSION: No evidence of recent bony injury. Abdomen/Pelvis CT 07/12/18 12:48 CONCLUSION: 1. Hepatic steatosis. 2. Severe diverticulosis. 3. Abdominal aortic aneurysm. 4. No acute findings. Chest CT 07/12/18 12:48 CONCLUSION: 1. Severe emphysema. 2. Hepatic steatosis. 3. Atherosclerosis. Neuro: neuro checks in a serial fashion. Recommend flexion extension xrays of the cervical spine. Pulmonary: aggressive pulmonary toilette, nasotracheal suction, and breathing treatments with nebulizers. Daily PT and OT Renal: Continue to monitor closely urine output, BUN and creatinine Endocrine: Continue to Monitor serial Acu checks and SSI as needed in detail ID continue to monitor for signs of infection Continue Protonix for stress ulcer prophylaxis Continue Fred hose and SCD's for DVT prophylaxis Further recommendations will be provided depending on the patient's clinical evaluation and follow up studies. If xrays show no instability or ligamentous injury, can discharge home
--- NOTE | 2018-07-13 14:05 | XR ---
EXAM DATE: 07/13/2018 1:55 PM EDT AGE/SEX: 72 years / Male INDICATIONS: Evaluate cervical stability. CLINICAL DATA: This is the patient's initial encounter. Patient reports that signs and symptoms have been present for 2 days and indicates a pain score of 3/10. MEDICAL/SURGICAL HISTORY: . Cardiovascular disease. Hypertension. Aneurysm, abdominal. . Abdomi nal aortic aneurysm repair. Cardiac stent placement. . COMPARISON: No prior exams available for comparison. FINDINGS: There is marginal osteophyte formation at C5-C6. With flexion there is minimal motion across the C4-C 5 disc space of 2 to 3 mm. This reduces with extension. Prevertebral soft tissues are intact. There i s no widening of the preodontoid space. CONCLUSION: Degenerative disc disease C5-C6 with minimal motion across the C4-C5 level. Electronically signed by: Fantasma Driver MD 07/13/2018 2:03 PM EDT
--- NOTE | 2018-07-13 16:39 | P.DS ---
Date of admission: 07/12/18 19:17 Primary care physician: Stone Garcia Brief History from admission: S/P Fall DS: Diagnosis - Discharge Diagnosis (1) Fall (on) (from) other stairs and steps, initial encounter Status: Acute (2) Concussion Status: Acute (3) Fracture of spinous process of cervical vertebra Status: Acute DS: Medications - Discharge Medications Prescriptions: methocarbamol 500 mg PO Q8H PRN #20 tab PRN Reason: Muscle Spasm tramadol 50 mg PO Q4H PRN #15 tab PRN Reason: Acute Pain DS: Summary Hospital Course: [place]: Misstepped going down hardwood stairs and fell the last 5 stairs. + LOC. GCS = 15. INJURIES: Concussion RIGHT C5 spinous process fx w/ 4mm displacement PMHx: HTN, HLD, CAD, Cardiac stents, COPD, AA with endovascular stent, tobacco use Concussion Supportive care Avoid second head injury Post concussive education RIGHT C5 spinous process fx w/ 4mm displacement Supportive care Flexion/extension x-rays show cervical spine stability No neuro deficits D/W [place]- DC [place] collar OK for cervical collar for comfort PRN No need for F/U with NS F/U with PCP in 1 week Plan of care discussed with patient and RN at bedside. Collaborating Trauma MD agrees with plan. Case management consulted to assist with discharge planning. Patient is clear from Trauma surgery to safely discharge home. - Time Spent with Patient Total time spent providing and/or coordinating discharge services: Greater than 30 minutes - Quality: VTE Deep Vein Thrombosis/Pulmonary Embolism Present on Admission: No Exam Vital signs: Vital Signs 07/12/18 18:39 07/12/18 20:00 07/12/18 20:24 Temperature 97.9 F 98 F Pulse Rate 85 77 Respiratory Rate 19 18 Blood Pressure 187/99 H 197/93 H Pulse Oximetry 94 L 95 97 07/12/18 22:32 07/13/18 00:47 07/13/18 01:58 Temperature 98 F Pulse Rate 94 H Respiratory Rate 18 18 18 Blood Pressure 125/72 Pulse Oximetry 95 07/13/18 04:00 07/13/18 04:05 07/13/18 07:31 Temperature 97.4 F L Pulse Rate 77 66 92 H Respiratory Rate 18 Blood Pressure 160/81 H Pulse Oximetry 94 L 07/13/18 08:00 07/13/18 09:16 07/13/18 12:00 Temperature 97.4 F L 97.3 F L Pulse Rate 77 74 59 L Respiratory Rate 17 18 18 Blood Pressure 152/77 H 155/84 H Pulse Oximetry 94 L 93 L 94 L Intake & Output 07/12/18 07/13/18 07/13/18 18:59 06:59 18:59 Intake Total 300 / 300 1000 / 1000 Balance 300 / 300 1000 / 1000 Weight 77 kg 77 kg Intake: IV 1000 / 1000 NS Inj 1,000 ML @ 100 mls/hr IV 900 / 900 .CONT .Q10H SANDRA Rx#:[id number] Ofirmev Inj 1,000 mg In 100 ml 100 / 100 @ 400 mls/hr IV.SIG Q6H SANDRA Rx# :[id number] Oral 300 / 300 Other: # Voids 0 Date of Last Bowel Movement 07/11/18 07/12/18 Narrative: GENERAL: 72 year old well-nourished male ambulating halls with [place] J collar on. SKIN: Warm and dry. HEAD:Normocephalic. ENT: No nasal bleeding or discharge. Mucous membranes pink and moist. NECK: Trachea midline. No JVD. [place] J collar. CARDIOVASCULAR: Regular rate and rhythm. RESPIRATORY: No accessory muscle use. Clear to auscultation. Breath sounds equal bilaterally. GASTROINTESTINAL: Abdomen soft, non-tender, nondistended. + BS MUSCULOSKELETAL: Extremities without cyanosis, or edema. MAEW, + perfused NEUROLOGICAL: Awake and alert. Normal speech. Results Procedures completed during hospitalization: . Labs on day of discharge: Labs from last 24 hours 07/13/18 07/13/18 07/12/18 04:42 04:42 20:15 WBC 7.7 RBC 4.12 L Hgb 14.5 Hct 40.9 MCV 99.1 MCH 35.1 H MCHC 35.4 RDW 13.5 Plt Count 186 MPV 7.2 Neut % (Auto) 66.1 Lymph % (Auto) 20.7 [place] % (Auto) 10.1 H Eos % (Auto) 2.5 Baso % (Auto) 0.6 Neut # (Auto) 5.1 Lymph # (Auto) 1.6 [place] # (Auto) 0.8 Eos # (Auto) 0.2 Baso # (Auto) 0.0 WBC Differential . Differential Comment Auto diff final Sodium 138 Potassium 3.6 Chloride 105 Carbon Dioxide 23.1 Anion Gap 10 BUN 11 Creatinine 0.83 Estimated GFR Greater than 89 Random Glucose 104 Calcium 8.7 Nasal Screen MRSA (PCR) Not detected - Impressions ITS Impressions Cervical Spine CT 07/12/18 11:00 CONCLUSION: 1. There is a right C5 spinous process fracture with 4 mm of displacement. No other fracture is identified. 2. Degenerative changes throughout the cervical spine, as above. Changes are most significant at C5-C6 where there is severe degenerative disc disease, posterior disc osteophyte complex, and uncovertebral osteophytes mildly narrow the spinal canal and causing moderate right neural foraminal stenosis. Chest X-Ray 07/12/18 11:00 CONCLUSION: Negative examination. Head CT 07/12/18 11:00 CONCLUSION: Negative noncontrast head CT. No acute finding is identified. . Wrist X-Ray 07/12/18 11:00 CONCLUSION: No evidence of recent bony injury. Abdomen/Pelvis CT 07/12/18 12:48 CONCLUSION: 1. Hepatic steatosis. 2. Severe diverticulosis. 3. Abdominal aortic aneurysm. 4. No acute findings. Chest CT 07/12/18 12:48 CONCLUSION: 1. Severe emphysema. 2. Hepatic steatosis. 3. Atherosclerosis. Cervical Spine X-Ray 07/13/18 09:56 CONCLUSION: Degenerative disc disease C5-C6 with minimal motion across the C4-C5 level. Discharge Plan - Discharge Disposition Patient Disposition: 01 Discharge Home - Discharge Condition Condition: Stable - Discharge Order Discharge Orders: Discharge Order (Routine); Ordered 07/13/18 Ordered By: Cassie Marrero - Physicians Team Primary Care Provider: Stone Garcia Attending Provider: Obie Don Other Providers: Harman Jernigan MD ; Jack Burdick MD ; Bhavesh Maciel MD ; [employer] ; Gabo Jean-Baptiste MD ; Marilu Dubon ARNP ; Obie Don MD ; Leann Nava MD ; Cassie Marrero ARNP ; Gregg Rosales MD
== END 2018-07-13 18:30 | disposition home or self-care (01) ==
LOC: PHED 10:31 → PHEDA 10:31 → N06 18:23
PROVIDERS: ADMIT Surgery; ATTEND Surgery